=== PATIENT | female | born 2000 | race African-American/Black ===

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

== ENCOUNTER 2023-11-17 07:23 | Emergency (ER) | payer MEDICAID ==
[~2023-11-17] VITALS: Ht 157.5 cm; Wt 62.5 kg
[2023-11-17 08:07] VITALS: O2SAT 98
[2023-11-17] MEDS ORDERED: NAPR-681 PO (11:50)
[2023-11-17 12:00] VITALS: BP 115/80; PULSE 82; RESP 16; TEMP 98.3
== END 2023-11-17 12:05 | disposition home or self-care (01) ==
LOC: ER 07:23
DX: S00.83XA Contusion of other part of head, initial encounter (principal); S69.91XA Unspecified injury of right wrist, hand and finger(s), initial encounter; V49.59XA Passenger injured in collision with other motor vehicles in traffic accident, initial encounter; Y93.89 Activity, other specified; Y92.89 Other specified places as the place of occurrence of the external cause; Y99.8 Other external cause status
CPT/HCPCS: 70486; 73130; 99284